=== PATIENT | male | born 1960 | race Caucasian/White ===

== ENCOUNTER 2017-08-23 13:37 | Day surgery (SDC) | payer OTHER ==
[2017-08-21 20:34] LABS: BASOPHILS 0.2 %; BASOPHILS ABSOLUTE 0.02 10/3/uL (0.0-0.16); EOSINOPHILS 2.1 %; EOSINOPHILS ABSOLUTE 0.17 10/3/uL (0.0-0.53); HEMATOCRIT 41.8 % (40.0-51.0); HEMOGLOBIN 13.9 g/dL (13.6-17.8); IMMATURE GRANULOCYTES 0.5 %; IMMATURE GRANULOCYTES ABSOLUTE 0.04 10/3/uL (0.0-0.11); LYMPHOCYTES 26.4 %; LYMPHOCYTES ABSOLUTE 2.17 10/3/uL (0.67-4.30); MEAN CORPUS HGB CONC 33.3 g/dL (32.0-36.0); MEAN CORPUSCULAR HEMOGLOB 33.7 pg (26.0-34.0); MEAN CORPUSCULAR VOLUME 101.2 fL (80-100); MEAN PLATELET VOLUME 10.3 fL (9.2-13.0); MONOCYTES 9.3 %; MONOCYTES ABSOLUTE 0.76 10/3/uL (0.21-1.20); NEUTROPHILS 61.5 %; NEUTROPHILS ABSOLUTE 5.05 10/3/uL (2.02-8.40); PLATELET COUNT 287 10/3/uL (150-400); RED CELL COUNT 4.13 10/6/uL (4.7-6.1); WHITE BLOOD CELLS 8.2 10/3/uL (4.5-10.5)
[2017-08-21 20:45] LABS: BUN (BLOOD UREA NITROGEN) 29 MG/DL (6-23); CALCIUM, SERUM 9.8 MG/DL (8.5-10.4); CHLORIDE, SERUM 100 MMOL/L (96-112); CO2 (CARBON DIOXIDE) 32 MMOL/L (24-34); CREATININE 1.39 MG/DL (0.70-1.30); GFR AFRICAN AMERICAN 64 ML/MIN (>=60); GFR NON AFRICAN AMERICAN 55 ML/MIN (>=60); GLUCOSE, SERUM 105 MG/DL (60-99); POTASSIUM, SERUM 5.1 MMOL/L (3.5-5.3); SODIUM, SERUM 138 MMOL/L (135-148)
[2017-08-21 20:49] LABS: MANUAL DIFF NO %
[~2017-08-23] VITALS: Ht 172.7 cm; Wt 92.1 kg
--- NOTE | ~2017-08-23 | OP ---
Record Of Operation [facility] [address] [place]. [address] NAME: JENAE OLSEN : 56 STATUS : [facility]#: [id number] AGE: 57 ADM/REG DATE : 08/23/17 MR#: [id number] REPORT SERV DATE: 08/24/17 DICTATED BY: KARTIK CARRILLO DATE: 08/23/17 REPORT STATUS : Draft TRANSCRIBED BY: MODVeena DATE: 08/23/17 DATE OF PROCEDURE: 08/23/2017 PREPROCEDURE DIAGNOSIS: Thrombosclerosis. POSTPROCEDURE DIAGNOSIS: Thrombosclerosis. PROCEDURE: Right IJ Wvmajy-T-Ryiq placement using ultrasound and fluoroscopic guidance. ULTRASOUND SONOGRAPHER: Rajesh Teresa. DESCRIPTION OF PROCEDURE: The patient was taken to the operating room and induced MAC anesthetic, prepped and draped in the usual sterile fashion. Ultrasound was used to identify the right internal jugular which was anterior and slightly lateral, larger, compressible compared to the pulsatile carotid. Local anesthetic was injected in the skin overlying the area and then using ultrasound and a Finder needle, the internal jugular vein was accessed. Then, the wire was placed via Seldinger technique, confirmed with fluoro, and pinned to the drapes using a rubber shod. Two fingerbreadths below the right clavicle, a 2 x 2 cm box was infiltrated with local TAP block solution. A 2 cm incision was made using the scalpel. This was carried down to the level of the pectoralis fascia using cautery and a port pocket was created. Two stay sutures were placed on either side through the port and tagging and then local anesthetic was injected from the pocket site to the neck incision where a stab incision was made overlying the wire. The tubing was placed from the pocket site to the neck incision, brought out through the neck incision, cutting the tubing on a diagonal, then the obturator plus sheath was placed over the wire taking great care to avoid any resistance. The obturator and wire were removed, and the tubing was placed down the sheath to 20 cm where it aspirated and flushed easily, and fluoro confirmed it was in the SVC. The sheath was cracked and removed holding the tubing in place with fluoro. The tubing was pulled back until the tip was just above the right atrium. Then, it was tagged with a rubber shod, cut to size, dilated, and attached to the port, and locked in place. The port aspirated and flushed using a Kay needle and placed into the port pocket site. The two stay sutures were tied on either side. Then, all skin incisions were closed with interrupted 3-0 Vicryl suture followed by 4-0 Monocryl. The patient was cleaned and dried, followed by benzoin, Steri-Strips, two Telfa, and Tegaderm. He tolerated the procedure well and chest x-ray will be obtained in recovery. REJI/THUY Kartik Carrillo M.D. / [id number] CC: Record Of Operation [address] [address] NAME: JENAE OLSEN : 56 STATUS : [facility] PAT#: [id number] AGE: 57 ADM/REG DATE : 08/23/17 MR#: [id number] REPORT SERV DATE: 08/24/17 DICTATED BY: KARTIK CARRILLO DATE: 08/23/17 REPORT STATUS : Draft TRANSCRIBED BY: THUY DATE: 08/23/17 Rosalia Bennett BRENDA L Lisa Virostek, M.D. GEORGE SAMUEL
[~2017-08-23 13:37] MED LIST: D 5000 PO; FOLIC PO; HYZAAR 50/12.51 TAB PO; KRILLOIL PO; LOP100 PO; PROAIR HFA INH; VITAMIN B-122500 MCG SL
== END 2017-08-23 19:02 | disposition home or self-care (01) ==
LOC: SDC 13:37
PROVIDERS: Surgery
PROC: B513YZA Fluoroscopy of Right Jugular Veins using Other Contrast, Guidance (ICD-10-PCS; 2017-08-23)
PROC: B543ZZA Ultrasonography of Right Jugular Veins, Guidance (ICD-10-PCS; 2017-08-23)
PROC: 05HM33Z Insertion of Infusion Device into Right Internal Jugular Vein, Percutaneous Approach (ICD-10-PCS; principal; 2017-08-23 15:15)
DX: I82.90 Acute embolism and thrombosis of unspecified vein (principal); C20 Malignant neoplasm of rectum; I10 Essential (primary) hypertension; J44.9 Chronic obstructive pulmonary disease, unspecified; F17.210 Nicotine dependence, cigarettes, uncomplicated; Z79.899 Other long term (current) drug therapy; Z98.890 Other specified postprocedural states
CPT/HCPCS: 71010; 76000; 77001; 80048; 85025; C1788; J0690; J1885; J2250; J2405; J2795; J3010; Q9967